=== PATIENT | male | born 2000 | race Caucasian/White ===

== ENCOUNTER 2023-10-15 18:44 | Emergency (ER) | payer MEDICAID, SELFPAY ==
[2023-10-15 18:50] VITALS: BP 150/88; PULSE 138
--- NOTE | 2023-10-15 18:57 | ED_ITS ---
HPI - Skin/Abscess/Foreign Bdy General Chief complaint: Skin/Abscess/Foreign Body Stated complaint: 2 LACERATIONS FINGERS, BLEEDING CONTROLLED Time Seen by Provider: 10/15/23 18:51 Source: patient Mode of arrival: EMS Limitations: no limitations History of Present Illness HPI narrative: Patient is a 23-year-old male who presents emergency department via EMS for evaluation of lacerations to the right 2nd and 3rd digit on the palmar aspect sustained prior to arrival. Reports that he was sweeping, and the handle to an aluminum broom was broken and he ultimately sustained lacerations to both the fingers. He is unaware of the date of his last tetanus vaccination. He does admit to alcohol consumption prior to arrival, and feeling anxious at this time due to inability to stop the bleeding. Denies any numbness or tingling or cold sensation to the digits. Able to fully flex and extend the digits. Denies any use of anticoagulants or known coagulation disorders Related Data Previous Rx's Medication Instructions Recorded cephalexin 500 mg capsule 500 mg PO QID #28 caps 10/15/23 Allergies Allergy/AdvReac Type Severity Reaction Status Date / Time No Known Allergies Allergy Verified 10/15/23 18:55 Review of Systems Review of Systems: Yes all other systems are reviewed and are negative [facility] Past Medical History Attestation statement: The following information was validated with the patient. Source: old records reviewed Social History Social History Advance Directives: No Advance Directives Information Provided: No Physical Exam Vital Signs: Vital Signs: Last Vital Signs Temp 98.9 F 10/15/23 18:58 Pulse 123 H 10/15/23 18:58 Resp 18 10/15/23 18:58 BP 127/78 10/15/23 18:58 Pulse Ox 98 10/15/23 18:58 O2 Del Method Room Air 10/15/23 18:58 BMI result Body Mass Index 20.0 Appearance: Alert.?Oriented to person, place and time. No acute distress.?Normal affect. Neck: Normal inspection.? Neck supple.?? CVS: Heart sounds normal. Normal heart rate and rhythm.? Pulses normal.?? Respiratory: No respiratory distress.? Lung sounds clear to auscultation bilaterally?? Abdomen: Soft and non-tender. Normoactive bowel sounds. ? Skin: Skin warm and dry.? Normal skin color.? Right hand, palmar aspect; 2nd digit proximal 0.5 cm linear laceration, 3rd digit 0.5 cm linear laceration Extremities: No lower extremity edema.? Neuro: Moves all extremities spontaneously. Sensation intact bilaterally. Ambulates with normal steady gait. Medications Administered Discontinued Medications Generic Name Dose Route Start Last Admin Trade Name Cholo PRN Reason Stop Dose Admin Diphtheria/Tetanus/Acell Pertussis 0.5 ml 10/15/23 18:55 10/15/23 19:58 Diphth,Pertus(Acell),Tet Adult 0.5 Ml Syringe IM 10/15/23 18:56 0.5 ml .ONCE ONE Administration Lidocaine HCl 5 ml 10/15/23 18:55 10/15/23 20:01 Lidocaine Hcl 1 % Mpf 5 Ml Vial SUBCUT 10/15/23 18:56 5 ml ONCE ONE Administration Medical Decision Making Medical Decision Making [facility] Narrative: Patient is a 23-year-old male who presents emergency department for evaluation of accidental laceration to the palmar aspect of the right 2nd and 3rd digit sustained from a broken aluminum handle of a broom. Unaware of the date of his last tetanus vaccination therefore will update today. Extremity it neurovascularly intact distally, clinically have low suspicion for any tendon involvement. Cleansed with normal saline and Betadine. Amenable to repair with suture, see procedural section of this note. Stable for discharge home, outpatient follow-up with PCP/return to an ED for suture removal, he is currently visiting from [place], [facility] when he will be returning home. Discussed return precautions. He is ambulatory with a steady gait, alert and oriented x3, speaking clear full sentences. Arranged for UBER ride home. Differential Diagnosis Differential Diagnoses: The differential diagnosis associated with the presentation includes (See narrative above) Independent Historian Clinical information obtained from an independent historian. History obtained from or confirmed by: EMS Procedures Laceration Laceration 1: Site: hand (Second digit) Side (If applicable): right Size (cm): 0.5 Description: linear Depth: simple, single layer Local Anesthetic: lidocaine 1% Amount of anesthesia used (mL): 1 Pre-repair: wound explored, irrigated extensively and deep structures intact Skin layer closed with: nylon Size (cm): 5-0 Number of sutures: 2 Technique: simple, interrupted Laceration 2: Site: hand Side (If applicable): right Size (cm): 0.5 Description: linear Depth: simple, single layer Local Anesthetic: lidocaine 1% Amount of anesthesia used (mL): 1 Pre-repair: wound explored, irrigated extensively and deep structures intact Skin layer closed with: nylon Size (cm): 5-0 Number of sutures: 2 Technique: simple, interrupted Nerve Block Nerve Block 1: Time out performed: Yes Local Anesthetic: lidocaine 1% Amount of anesthesia used (mL): 2 Side: right Nerve Blocks: digital Procedure Successful: Yes Patient Tolerated Procedure: well Complications: none Discharge Plan Discharge Clinical Impression: Finger laceration Patient Disposition: Home, Self-Care Instructions: Finger Laceration (ED) Additional Instructions: Stitches will need to be removed in 10-14 days; 2 in the right 2nd finger, 2 in the right 3rd finger. Follow up with the primary care provider or return back to emergency department for removal. Your tetanus vaccine was updated today. They should be re-evaluated if you develop fevers, chills, increasing pain, redness, swelling, pus-like discharge, inability to make a fist or fully open the fingers. Prescriptions: New cephalexin 500 mg capsule 500 mg PO QID Qty: 28 0RF Referrals: Physician,None [Primary Care Provider] -
[2023-10-15 18:58] VITALS: BP 127/78; PULSE 123; RESP 18; TEMP 37.2; O2SAT 98
[2023-10-15] MEDS: Diphth,Pertus(ACell),Tet Adult 0.5 ML SYRINGE IM (19:58)
[2023-10-15] MEDS: Lidocaine HCl 1 % MPF 5 ML VIAL SUBCUT (20:01)
== END 2023-10-15 20:10 | disposition home or self-care (01) ==
PROVIDERS: Emergency Provider Emergency Medicine
DX: S61.210A Laceration without foreign body of right index finger without damage to nail, initial encounter (principal); S61.212A Laceration without foreign body of right middle finger without damage to nail, initial encounter; W26.8XXA Contact with other sharp object(s), not elsewhere classified, initial encounter; Y93.E5 Activity, floor mopping and cleaning; Y92.9 Unspecified place or not applicable; Y99.9 Unspecified external cause status
CPT/HCPCS: 12001; 90471; 90715; 99283; 99284

== ENCOUNTER 2023-10-29 13:31 | Emergency (ER) | payer MEDICAID, SELFPAY ==
[2023-10-29 13:57] VITALS: BP 117/77; PULSE 66; RESP 18; TEMP 36.8; O2SAT 99; BMI 19.9
--- NOTE | 2023-10-29 13:59 | ED.GENADULT ---
HPI - General Adult General Chief complaint: Wound/Laceration Stated complaint: Suture removal Time Seen by Provider: 10/29/23 13:59 Source: patient Mode of arrival: ambulatory Limitations: no limitations History of Present Illness HPI narrative: Patient is a 23-year-old male presenting to the emergency department for removal of sutures placed in this emergency department on 10/15/2023 to right hand. Reports wounds have been healing well without complication. Denies fevers, increased pain, new redness, swelling, drainage or discharge. MD complaint: Suture removal Associated symptoms: denies other symptoms Treatments prior to arrival: none Related Data Previous Rx's Medication Instructions Recorded cephalexin 500 mg capsule 500 mg PO QID #28 caps 10/15/23 Allergies Allergy/AdvReac Type Severity Reaction Status Date / Time No Known Allergies Allergy Verified 10/15/23 18:55 Review of Systems Review of Systems: As per HPI. Yes all other systems are reviewed and are negative Constitutional: Constitutional: Reports as per HPI [facility] Social History Social History Advance Directives: No Physical Exam ED Vital Signs: Vital Signs - 24 hr 10/29/23 13:57 Temperature 98.2 F Pulse Rate 66 Respiratory Rate 18 Blood Pressure 117/77 Pulse Oximetry 99 Oxygen Delivery Method Room Air BMI result Body Mass Index 19.9 Vital signs have been reviewed and appear to be correct. Blood pressure normal. Heart rate normal. Respiratory rate normal. Temperature normal. Oxygen saturation normal. Const General: cooperative, healthy appearing and no acute distress Orientation/consciousness: oriented to person, oriented to place, oriented to time and patient oriented x3 Limitations: no limitations HENMT Head: Yes normocephalic and Yes atraumatic Ears: external ears normal General nose exam: Normal external nose present Face and sinus: Yes face symmetric Mouth: oropharynx normal and moist mucous membranes Throat: Yes uvula midline Eyes Pupils: Equal, round and reactive pupils present Neck Neck: Yes normal visual inspection and Yes supple Resp Effort & Inspection: normal respiratory effort and able to speak in complete sentences Auscultation: clear to auscultation bilaterally Cardio Rate: regular rate Rhythm: regular rhythm Heart sounds: S1 normal heart sound present and S2 normal heart sound present Skin General skin exam: elasticity normal and turgor normal Neuro General: oriented to person, oriented to place, oriented to time, patient oriented x3, moves all extremities, no focal motor deficits and CN's II-XI intact bilaterally Cranial nerves: Yes Equal, round and reactive pupils present Cognition (Neuro): normal cognition Extrem General: Yes full ROM, Yes normal exam except as noted, Yes no pedal edema and Yes no calf tenderness Right upper extremity: Extremity exam: right hand (well-healing wounds to anterior 2nd and 3rd fingers with sutures intact) Psych Mental Status: mental status grossly normal Affect: normal affect Thought process: Normal thought process present Medical Decision Making Medical Decision Making MDM Narrative: Patient is a 23-year-old male presenting to the emergency department for removal of sutures placed in this emergency department on 10/15/2023 to right hand. Wounds appear to be healing well without signs or symptoms of infection/cellulitis. Sutures removed, 2 from right 2nd finger, 2 from right 3rd finger, without difficulty with success. Band-aids applied. Discussed daily wound checks and ongoing wound care. Return precautions discussed. Patient verbalized understanding of and agreement with plan. Differential Diagnosis Differential Diagnoses: The differential diagnosis associated with the presentation includes suture removal cellulitis External Record Review External record reviewed: Inpatient record, Office record and Outpatient record Discharge Plan Discharge Clinical Impression: Visit for suture removal Instructions: Stitches Removal (ED) Additional Instructions: You were seen in the emergency department today for suture removal. Your wound appears to be healing well. Please keep the area surrounding the wound clean and dry and cover with Band-Aid until fully healed. Do not submerge in water until fully healed. Please continue to assess the wound daily. Keep the area out of direct sunlight for the next 6 months to help prevent scarring. If you develop fever, redness, swelling at the site of your laceration, or thick yellow drainage please come back to the ER for a wound check. Prescriptions: No Action cephalexin 500 mg capsule 500 mg PO QID Qty: 28 0RF
== END 2023-10-29 14:11 | disposition home or self-care (01) ==
PROVIDERS: Emergency Provider Student in an Organized Health Care Education/Training Program
DX: Z48.02 Encounter for removal of sutures (principal)
CPT/HCPCS: 99282

== ENCOUNTER 2025-03-12 17:32 | Emergency (ER) | payer SELFPAY ==
--- NOTE | ~2025-03-12 | XR_ITS ---
CLINICAL HISTORY: R medial elbow echymosis, blunt injury 3 view right elbow Comparison: None provided Findings: No acute fractures or dislocations. Medial soft tissue swelling. No joint effusion. No radiopaque foreign body. IMPRESSION: 1. No acute osseous findings. This document has been electronically signed by: Shanti Garibay MD on 03/12/2025 19:38:50
--- NOTE | ~2025-03-12 | XR_ITS ---
CLINICAL HISTORY: R ulnar aspect hand TTP 3 view right hand Comparison: None provided Findings: Bones intact. No dislocations. No erosions. No radiopaque foreign body. IMPRESSION: 1. No acute findings This document has been electronically signed by: Shanti Garibay MD on 03/12/2025 19:38:31
[2025-03-12 17:39] VITALS: BP 138/82; BP 143/92; PULSE 106; PULSE 98; RESP 17; TEMP 36.3; O2SAT 100; O2SAT 99; BMI 20.4
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
[2025-03-12 20:12] VITALS: BP 127/72; PULSE 92; RESP 16; TEMP 37.4; O2SAT 99
[2025-03-12 20:40] VITALS: BP 127/72; PULSE 92; RESP 16; TEMP 37.4; O2SAT 99
== END 2025-03-12 20:43 | disposition home or self-care (01) ==
PROVIDERS: Emergency Provider Emergency Medicine
DX: S71.111A Laceration without foreign body, right thigh, initial encounter (principal); S50.01XA Contusion of right elbow, initial encounter; S50.812A Abrasion of left forearm, initial encounter; S30.811A Abrasion of abdominal wall, initial encounter; V43.52XA Car driver injured in collision with other type car in traffic accident, initial encounter; Y93.89 Activity, other specified; Y92.414 Local residential or business street as the place of occurrence of the external cause; Y99.9 Unspecified external cause status
CPT/HCPCS: 12001; 73070; 73120; 76604; 76705; 93308; 99283; 99284

== ENCOUNTER → 2025-03-12 18:33 | Outpatient (BNV) | payer MEDICAID, SELFPAY | PROVIDERS: Emergency Provider Emergency Medicine; Visit Provider Radiology Diagnostic Radiology | DX: S50.01XA Contusion of right elbow, initial encounter (principal); M79.642 Pain in left hand | CPT/HCPCS: 73070; 73120 ==